=== PATIENT | male | born 1940 | race Caucasian/White ===

== ENCOUNTER 2017-09-29 10:38 | Day surgery (SDC) | payer MEDICARE, OTHER ==
[~2017-09-29 10:38] MED LIST: ASCO500; ASPI81CH; CHOL10002; Chondroitin Su250 MG; FORTESTA60 GM TOP; GLUC500 PO; LISI20 PO; MEGARED OMEGA-1 EAC1; MONT10T; Multivitamin1 EAC1; PANT40
== END 2017-09-29 22:40 | disposition home or self-care (01) ==
LOC: MHTC 10:38
PROC: B246ZZ4 Ultrasonography of Right and Left Heart, Transesophageal (ICD-10-PCS; principal; 2017-09-29)
DX: Q21.1 Atrial septal defect (principal); I10 Essential (primary) hypertension; E78.00 Pure hypercholesterolemia, unspecified; Z86.73 Personal history of transient ischemic attack (TIA), and cerebral infarction without residual deficits
CPT/HCPCS: 93312; 93325; J7030